=== PATIENT | male | born 1965 | race Asian ===

== ENCOUNTER 2024-07-07 12:15 | Emergency (ER) | payer OTHER, SELFPAY ==
[2024-07-07] VITALS (7 sets, daily range): BP systolic 145–165; BP diastolic 64–98; PULSE 62–70; RESP 17–20; TEMP 36.4–36.9; O2SAT 99–100
--- NOTE | ~2024-07-07 | XR_ITS ---
XR chest 2V Ordering provider: Mack Sanders MD History: 59 years Male with . dizziness . Comparison: None. FINDINGS: MEDIASTINUM: The cardiac silhouette is slightly enlarged. Congestive lv. LUNGS: No infiltrates, effusions or pneumothorax. Prominent markings in the left lower lobe area. OTHER: No free air under the diaphragm. Degenerative spine. IMPRESSION: Cardiomegaly with congestive lv. Prominent markings in the left lower lobe which may be due to the poor inspiration. Early atelectasis or pneumonia cannot be excluded. Follow-up advised. Reviewed, dictated and finalized at location A. IMPRESSION: Cardiomegaly with congestive lv. Prominent markings in the left lower lobe which may be due to the poor inspirat ion. Early atelectasis or pneumonia cannot be excluded. Follow-up advised.
--- NOTE | 2024-07-07 13:05 | ECG_ITS ---
Test Date: 2024-07-07 13:09:58 Measurements Intervals [place] Rate: 54 P: 26 MI: 182 QRS: 12 QRSD: 105 T: 30 QT: 442 QTc: 419 Interpretive Statements SINUS BRADYCARDIA OTHERWISE NORMAL ECG No previous ECG available for comparison Electronically Signed On 07-07-2024 16:15:07 CDT by Willy Dubois M.D.
--- OUTSIDE RECORDS SUMMARY | 2024-07-07 14:09 | XMS_ITS | Referral Summary ---
Author Organization [facility] Address [address] [place] [address] Care Team Providers Care Trimmer Machine Operator Name Role Phone Manuel Hsu MD Primary Care Provider + [phone] Berry Wesley MD Unavailable [phone] Allergies No known active allergies Medications No known medications Active Problems Problem Noted Date Diagnosed Date Varicose veins of right lower extremity with liu n 09/21/2021 Overview (09/21/2021): Added automatically from request for surgery [id number] Assessment & Plan (11/25/2021 1:00 PM CDT): Impression: Patient is status post right great saphenous vein EVLT on 10/15/2021. Venous duplex scan reveals an ablated great saphenous vein with no acute DVTs. Small palpable mass is noted to the right medial thigh under a phlebectomy site. Plan: Explained to the patient that this residual following the stab phlebectomy. Reassured patient this will resolve over time. Patient to follow-up on an as- needed basis. Assessment & Plan (10/29/2021 4:03 PM CDT): Impression: Patient recovering well status post right great saphenous vein EVLT with stab phlebectomies. Plan: Continue utilize medical grade knee-high compression stockings p.r.n.. Patient follow-up on as-needed basis. Varicose veins with pain 09/04/2021 Social History Tobacco Use Types Packs/Day Years Used Date Smoking Tobacco: Never AUDIT-C Answer Date Recorded Q1: How often do you have a drink containing alcohol? Never 10/06/2021 Q2: How many drinks containi ng alcohol do you have on a typical day when you are drinking? Patient does not drink Q3: How often do you have si x or more drinks on one occasion? Never 10/06/2021 Sex and Gender Information Value Date Recorded Sex Assigned at Not on file Legal Sex Male 11:33 AM CDT Gender Identity Not on file Sexual Orientation Not on file Last Filed Vital Signs Vital Sign Reading Time Taken Comments Blood Pressure 131/84 11/25/2021 8:30 AM CDT Pulse 58 11/25/2021 8:30 AM CDT Temperature 36.4 C (97.5 F) 10/15/2021 1:45 PM CDT Respiratory Rate 18 10/15/2021 1:45 PM CDT Oxygen Saturation 100% 10/15/2021 1:45 PM CDT Inhaled Oxygen Concentration - - Weight 81.6 kg (180 lb) 11/25/2021 8:30 AM CDT Height 172 cm (5' 7.72 ) 11/25/2021 8:30 AM CDT Body Mass Index 27.6 11/25/2021 8:30 AM CDT Plan of Treatment Not on file Insurance CHOICE [facility] [place] Care Teams Trimmer Machine Operator Relationship Specialty Start Date End Date Manuel Hsu MD [address] [place] [address] PCP - General Family Medicine 07/09/21 Berry Welsey MD [address] [facility] [address] [place] [address] Surgeon Vascular Surgery 10/15/21
--- OUTSIDE RECORDS SUMMARY | 2024-07-07 14:09 | XMS_ITS | Clinical Summary ---
Author Organization [facility] Address [address] [place] [address] Care Team Providers Care Debate Director Name Role Phone Manuel Hsu MD Primary Care Provider + [phone] Berry Wesley MD Unavailable [phone] Allergies No known active allergies Medications No known medications Active Problems Problem Noted Date Diagnosed Date Varicose veins of right lower extremity with liu n 09/21/2021 Overview (09/21/2021): Added automatically from request for surgery [id number] Assessment & Plan (11/25/2021 1:00 PM CDT): [...] as-needed basis. Varicose veins with pain 09/04/2021 Surgical History Surgery Date Site/Laterality Comments VARICOSE VEIN SURGERY 10/15/2021 Right EVLT w/ 21 stab phlebectomies Medical History Medical History Date Comments Varicose veins of right lowe r extremity with pain has had for many years/incre ased causing discomfort Facial twitching spasms of eyeli ds- saw MD- botox injections did not help- no cause identified pt states ( 2021) Family History Medical History Relation Name Comments No Known Problems Father No Known Problems Mother Relation Name Status Comments Father Mother Social History Tobacco Use Types Packs/Day Years [...] on file Sexual Orientation Not on file Obstetrics History Last Filed Vital Signs Vital Sign Reading [...] 11/25/2021 8:30 AM CDT Plan of Treatment Health Maintenance Due Date Last Done Comments Colon Cancer Screening-Colonoscopy 1964 Depression Screening 1964 Hepatitis C Screening 1964 Prostate Cancer Screening-PSA 1964 DTaP/Tdap/Td Vaccine (1 - Tdap) 06/09/1975 Hepatitis B Screening 1982 Regular Well Visit/Exam 18-64 1982 Zoster Vaccine (1 of 2) 2014 Influenza Vaccine (Season Ended) 2024 Pneumococcal vaccine <65 Aged Out No longer eligible based on patient's age to complete this topic Insurance [place] Care Teams Debate Director Relationship Specialty Start Date End Date Manuel Hsu MD [address] [place] [address] PCP - General Family Medicine 07/09/21 Berry Wesley MD [address] [place] [address] Surgeon Vascular Surgery 10/15/21
[2024-07-07 14:13] LABS: Basophils Percent Auto 0.4 % (0.2-1.2); Eosinophils Percent Auto 0.1 % (0-4.4); Hematocrit 48.1 % (42.0-52.0); Hemoglobin 15.3 g/dL (14.0-18.0); Immature Granulocyte Absolute 0.04 K/mm3 (0.00-0.031); Immature Granulocyte Percent A 0.4 % (0-0.5); Lymphocytes Absolute Auto 0.88 K/mm3 (0.9-3.2); Lymphocytes Percent Auto 8.9 % (18.3-44.2); Mean Corpuscular HGB Conc 31.8 g/dl (32-36); Mean Corpuscular Hemoglobin 29.6 pg (26-34); Mean Platelet Volume 10.5 fl (7.4-10.4); Monocytes Absolute Auto 0.3 K/mm3 (0.1-0.6); Monocytes Percent Auto 3.2 % (2.6-8.5); Neutrophils Absolute Auto 8.6 K/mm3 (1.3-6.7); Platelet Count Result 204 k/mm3 (150-375); Red Blood Count 5.17 M/mm3 (4.6-6.20); Red Cell Distribution Width 12.9 % (11.5-14.5); White Blood Count 9.8 K/mm3 (4.5-10.0)
[2024-07-07 14:28] LABS: INR 0.9; Prothrombin Time 12.5 Seconds (11.1-14.7)
[2024-07-07 14:29] LABS: Alanine Aminotransferase 25 U/L (6-50); Albumin Level 4.5 g/dL (3.5-5.1); Alkaline Phosphatase 92 U/L (38-126); Anion Gap 9 mmol/L (4-12); Aspartate Amino Transferase 31 U/L (17-59); Bilirubin,Total 0.9 mg/dL (0.2-1.3); Blood Urea Nitrogen 20 mg/dL (9-20); Carbon Dioxide 26 mmol/L (22-30); Chloride 106 mmol/L (98-107); Estimated CRCL calculation 88 ml/min; Estimated Glomerular Filt Rate > 60; Glucose 105 mg/dL (65-110); Partial Thromboplastin Time 26.3 Seconds (22.3-36.8); Potassium 4.1 mmol/L (3.4-5.0); Sodium 141 mmol/L (137-145)
--- NOTE | 2024-07-07 14:35 | ED_ITS ---
HPI - General Adult General Chief complaint: Dizziness Stated complaint: dizziness and nausea Time Seen by Provider: 07/07/24 13:22 History of Present Illness HPI narrative: Patient is a 59-year-old male who presents ER with dizziness. Sudden onset today. Feels like headed with some nausea. Worse with movements. While in triage became very nauseous while dizzy and briefly was bradycardic down into the 30s. Denies palpitations or chest pain. Patient reports he is in good health but also does not go to a doctor. Related Data Allergies Allergy/AdvReac Type Severity Reaction Status Date / Time spring allergy Allergy Mild Unknown Uncoded 07/07/24 14:57 Review of Systems 2 Review of Systems: All systems reviewed & are unremarkable except as noted in HPI and below Constitutional: Constitutional: Reports no additional constitutional complaints ENT: Reports system reviewed and no additional complaints, except as documented Cardiovascular: Cardiovascular: Reports no additional cardiovascular complaints Respiratory: Respiratory: Reports no additional respiratory complaints Gastrointestinal: Gastrointestinal: Reports no additional gastrointestinal complaints PMFSH Past Medical History Medical History (Updated 07/07/24 @ 16:11 by Mack Sanders MD) Healthy adult male Exam 2 Narrative: GENERAL: Well-appearing, well-nourished, and in no acute distress. HEAD: Normocephalic, atraumatic. ENT: Mucous membranes moist. TMs normal bilaterally. Eyes: Pleural, EOMI. CHEST: Clear to auscultation. No respiratory distress. HEART: Regular rate and rhythm. Normal peripheral pulses. ABDOMEN: Soft, nontender, nondistended. EXTREMITIES: Normal range of motion. No edema. SKIN: Warm, dry, no rash. NEURO: Alert and oriented x3. PSYCH: Normal mood and affect. Course Course Emergency Course: Patient resting comfortably. Symptoms improved with meclizine. No additional bradycardia though he was having episodes of dizziness. Occasional PVC. Ambulates with a steady gait. Appropriate for discharge home. X-ray with poor inspiration. Patient with normal lung sounds. Recommend he establish care with a physician. Vital Signs Vital signs: Vital Signs Temperature 98.4 F 07/07/24 12:15 Pulse Rate 64 07/07/24 12:15 Respiratory Rate 18 07/07/24 12:15 Blood Pressure 145/80 H 07/07/24 12:15 Pulse Oximetry 100 07/07/24 12:15 Oxygen Delivery Room Air 07/07/24 12:15 Temperature 97.6 F 07/07/24 13:02 Pulse Rate 66 07/07/24 14:47 Respiratory Rate 20 07/07/24 14:34 Blood Pressure 165/98 H 07/07/24 14:47 Pulse Oximetry 99 07/07/24 14:34 Oxygen Delivery Room Air 07/07/24 12:15 Medical Decision Making Vital Signs Vital Signs: Vital Signs Temperature 98.4 F 07/07/24 12:15 Pulse Rate 64 07/07/24 12:15 Respiratory Rate 18 07/07/24 12:15 Blood Pressure 145/80 H 07/07/24 12:15 Pulse Oximetry 100 07/07/24 12:15 Oxygen Delivery Room Air 07/07/24 12:15 Temperature 97.6 F 07/07/24 13:02 Pulse Rate 66 07/07/24 14:47 Respiratory Rate 20 07/07/24 14:34 Blood Pressure 165/98 H 07/07/24 14:47 Pulse Oximetry 99 07/07/24 14:34 Oxygen Delivery Room Air 07/07/24 12:15 Lab Data 07/07/24 14:07 07/07/24 14:07 Labs: Lab Results 07/07/24 Range/Units 14:07 WBC 9.8 (4.5-10.0) K/mm3 RBC 5.17 (4.6-6.20) M/mm3 Hgb 15.3 (14.0-18.0) g/dL Hct 48.1 (42.0-52.0) % MCV 93.0 (80-100) fl MCH 29.6 (26-34) pg MCHC 31.8 L (32-36) g/dl RDW 12.9 (11.5-14.5) % Plt Count 204 (150-375) k/mm3 MPV 10.5 H (7.4-10.4) fl Immature Gran % (Auto) 0.4 (0-0.5) % Neut % (Auto) 87.0 H (45.5-73.1) % Lymph % (Auto) 8.9 L (18.3-44.2) % Ware % (Auto) 3.2 (2.6-8.5) % Eos % (Auto) 0.1 (0-4.4) % Baso % (Auto) 0.4 (0.2-1.2) % Lymph # (Auto) 0.88 L (0.9-3.2) K/mm3 Ware # (Auto) 0.3 (0.1-0.6) K/mm3 Eos # (Auto) 0.0 (0-0.3) K/mm3 Baso # (Auto) 0.0 (0.0-0.1) K/mm3 Abs Immat Gran (auto) 0.04 H (0.00-0.031) K/mm3 Absolute Neuts (auto) 8.6 H (1.3-6.7) K/mm3 Absolute Nucleated RBC 0.000 (0.0-0.012) K/mm3 Nucleated RBC % 0.0 (0.0-0.2) % PT 12.5 (11.1-14.7) Seconds INR 0.9 APTT 26.3 (22.3-36.8) Seconds Sodium 141 (137-145) mmol/L Potassium 4.1 (3.4-5.0) mmol/L Chloride 106 (98-107) mmol/L Carbon Dioxide 26 (22-30) mmol/L Anion Gap 9 (4-12) mmol/L BUN 20 (9-20) mg/dL Creatinine 0.76 (0.7-1.3) mg/dL Estim Creat Clear Calc 88 ml/min Estimated GFR > 60 (59 - ) Glucose 105 (65-110) mg/dL Calcium 9.0 (8.4-10.2) mg/dL Total Bilirubin 0.9 (0.2-1.3) mg/dL AST 31 (17-59) U/L ALT 25 (6-50) U/L Alkaline Phosphatase 92 (38-126) U/L Troponin I < 0.012 (0.000-0.034) ng/mL NT-Pro-B Natriuret Pep 50 (19.9-100) pg/mL Total Protein 8.0 (6.3-8.2) g/dL Albumin 4.5 (3.5-5.1) g/dL Imaging Data Radiologist's impression: ITS Impressions Chest X-Ray 07/07/24 14:21 IMPRESSION: Cardiomegaly with congestive lv. Prominent markings in the left lower lobe which may be due to the poor inspiration. Early atelectasis or pneumonia cannot be excluded. Follow-up advised. ECG Data EKG #1: ECG completion date: 07/07/24 ECG completion time: 13:09 EKG Interpretation: bradycardia (54), sinus rhythm, normal QRS, normal QT and NL axis Discharge Plan Discharge Clinical Impression: Vertigo Patient Disposition: Home Condition: Stable Instructions: Vertigo (ED) Additional Instructions: Return the ER if you have worsening chest pain, you have new weakness in arm or leg, he cannot keep down food or water, or you have additional concerns. [facility] Prescriptions: New meclizine 25 mg tablet 25 mg PO BID-TID PRN (Reason: dizziness) Qty: 20 0RF Follow-up/Referrals: Manuel Hsu MD [Primary Care Provider] - 1 Week
[2024-07-07 14:39] LABS: Troponin I < 0.012 ng/mL (0.000-0.034)
[2024-07-07] MEDS: MECLIZINE HCL 25 MG TABLET PO (14:44)
[2024-07-07 14:53] LABS: NT Pro B Type Natriuretic Pept 50 pg/mL (19.9-100)
== END 2024-07-07 16:51 | disposition home or self-care (01) ==
PROVIDERS: Emergency Provider Emergency Medicine; PCP Emergency Medicine
DX: R42 Dizziness and giddiness (principal); I51.7 Cardiomegaly; R00.1 Bradycardia, unspecified; R09.89 Other specified symptoms and signs involving the circulatory and respiratory systems
CPT/HCPCS: 36415; 71046; 80053; 83880; 84484; 85025; 85610; 85730; 93005; 99284; A9270